=== PATIENT | female | born 1945 | race Asian ===

== ENCOUNTER 2020-10-10 15:23 | Emergency (ER) | payer OTHER ==
[~2020-10-10] VITALS: Ht 165.1 cm; Wt 61.2 kg
--- NOTE | ~2020-10-10 | EMS ---
[address] [address] EMS Patient Care Report Name: ZULEMA BUTT Room #: DEP KEIRA Dacosta#: [id number] Admission: 10/10/20 Attend Phys: Discharge: 10/10/20 Date of : 41 Report #: [id number] THIS REPORT FOR: //name// Report Transmitted: 10/15/2020 14:37 EMS Care Summary [place], [place]/[facility] Incident [id number] @ 10/10/2020 14:49 Incident Location [facility] [address] [place] [address] Patient ZULEMA BUTT Female, 75 Years 1945 Patient Address [address] [place], [place] [id number] Patient History None Reported, Patient Allergies No known allergies, Patient Medications None Reported, Chief Complaint shortness of breath Disposition Transported No Lights/[place] [facility] Reason Breathing Problem Transported To [facility] Narrative Med 537 was dispatched to a breathing problems. Upon arrival on scene the patient was found lying in bed supine alert and oriented x 4, GCS 15 complaining of shortness of breath that has lasted for an [address] [address] EMS Patient Care Report Name: ZULEMA BUTT Room #: DEP KEIRA Dacosta#: [id number] Admission: 10/10/20 Attend Phys: Discharge: 10/10/20 Date of : 41 Report #: [id number] hour. Family states that she has been unable to get up on her own. The patient did not appear to be in any distress and was breathing normally. The patient was moved to the stretcher and strapped in with the seatbelts and taken to the ambulance. During transport vitals were monitored and a report was called in to the hospital. Upon arrival at the ER the patient was taken inside and moved to the hospital bed and a report was given to the nurse and care was transferred . Initial Vitals @15:05P: 100, @15:14P: 100,R: 16,BP: 113/61,Pain: 0/10,GCS: 15,Glucose: 105,SpO2: 100,Revised Trauma: 12, @15:01P: 99,R: 16,BP: 131/73,Pain: 0/10,GCS: 15,SpO2: 100,Revised Trauma: 12, Assessments @14:56MENTAL:Person Oriented,Time Oriented,Event Oriented,Place Oriented,SKIN:HEENT:Eyes: Left: Other,Eyes: Right: Other,Head/Face: No Abnormalities,Neck/Airway: No Abnormalities,LUNG SOUNDS:General: No Abnormalities,ABDOMEN:General: No Abnormalities,PELVIS//GI:No Abnormalities,EXTREMITIES:Capillary Refill: Left Upper: < 2 Sec,Capillary Refill: Right Upper: < 2 Sec,Left Arm: No Abnormalities,Right Arm: No Abnormalities,Left Leg: No Abnormalities,Right Leg: No Abnormalities,PULSE:Radial: 2+ Normal,NEURO:@15:05MENTAL:Person Oriented,Place Oriented,Event Oriented,Time Oriented,SKIN:HEENT:Eyes: Left: Other,Eyes: Right: Other,Head/Face: No Abnormalities,Neck/Airway: No Abnormalities,LUNG SOUNDS:General: No Abnormalities,ABDOMEN:General: No Abnormalities,PELVIS//GI:No Abnormalities,EXTREMITIES:Capillary Refill: Left Upper: < 2 Sec,Capillary Refill: Right Upper: < 2 Sec,Left Arm: No Abnormalities,Right Arm: No Abnormalities,Left Leg: No Abnormalities,Right Leg: No Abnormalities,PULSE:Radial: 2+ Normal,NEURO:No Abnormalities, Impression Shortness of breath Procedures @14:56ALS AssessmentResponse: UnchangedSucceeded@15:053-Lead ECGResponse: UnchangedSucceeded Timeline 14:48,Call Received 14:48,Dispatch Notified 14:49,Dispatched 14:49,En Route 14:54,On Scene 14:56,[place] [address] EMS Patient Care Report Name: ZULEMA BUTT Room #: [facility] Praneeth#: [id number] Admission: 10/10/20 Attend Phys: Discharge: 10/10/20 Date of : 41 Report #: [id number] 14:56,ALS Assessment,Response: UnchangedSucceeded, 15:01,BP: 131/73 M,PULSE: 99,RR: 16 R,SPO2: 100 Ox,ETCO2: ,BG: ,PAIN: 0,GCS: 15, 15:05,3-Lead ECG,Response: UnchangedSucceeded, 15:05,BP: / M,PULSE: 100,RR: R,SPO2: Ox,ETCO2: ,BG: ,PAIN: ,GCS: , 15:05,Depart Scene 15:14,BP: 113/61 M,PULSE: 100,RR: 16 R,SPO2: 100 Ox,ETCO2: ,B,PAIN: 0,GCS: 15, 15:18,At Destination 15:32,Call Closed Disclaimer v1.1 Copyright 2020 [employer] This EMS Care Summary contains data elements from the applicable legal record (which may be displayed differently). It is designed to provide pertinent information for the following purposes: continuity of care, clinical quality, and state data reporting. The complete legal record is available to ED staff and administrators of the receiving hospital in [facility]'s Patient Tracker. All data is provided "as is."
[2020-10-10 16:26] LABS: ABSOLUTE NEUTROPHILS 2.3 thou/uL (1.4-8.2); BASOPHILS 0.6 % (0.0-2.0); HEMATOCRIT 36.5 % (37.0-47.0); HEMOGLOBIN 12.5 gm/dL (12.0-15.0); LYMPHOCYTES 33.3 % (24.0-44.0); MCH 31.6 pg (26.0-34.0); MCHC 34.2 g/dL (28.0-37.0); MCV 92.5 fL (80.0-100.0); MONOCYTES 11.6 % (1.0-8.0); PLATELET COUNT 147 thou/uL (150-400); POLYS 51.5 % (36.0-66.0); RBC 3.95 mil/uL (4.20-5.00); RDW 13.5 % (10.5-14.5); WBC 4.5 thou/uL (4.0-11.0)
[2020-10-10 16:37] LABS: ANION GAP 7 mmol/L (7-16); BUN 14 mg/dL (7-18); CALCIUM 8.9 mg/dL (8.5-10.1); CHLORIDE 105 mmol/L (98-107); CO2 29 mmol/L (21-32); CREATININE 0.7 mg/dL (0.6-1.0); GLUCOSE 123 mg/dL (74-106); POTASSIUM 3.6 mmol/L (3.5-5.1); SODIUM 141 mmol/L (136-145); TROPONIN-I <0.06 ng/mL (<0.06)
[2020-10-10 18:59] VITALS: BP 139/85
--- NOTE | 2020-10-11 07:11 | EKG ---
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
== END 2020-10-10 18:59 | disposition home or self-care (01) ==
LOC: ER 15:23
PROVIDERS: Nurse Practitioner
DX: R06.00 Dyspnea, unspecified (principal); Z20.822 Contact with and (suspected) exposure to COVID-19